=== PATIENT | male | born 1950 | race Caucasian/White ===

== ENCOUNTER 2017-08-31 17:14 | Emergency (ER) | payer MEDICARE, OTHER, SELFPAY ==
[2017-08-31 17:15] VITALS: BP 140/82; PULSE 82; RESP 18; O2SAT 98; BMI 30.5
--- NOTE | 2017-08-31 17:23 | CT_ITS ---
CT abdomen pelvis w con CLINICAL INDICATION: Abdominal pain and distention ITS.REASON: abdomen pain ORDERING PHYSICIAN: Yohana Cabrera MD PATIENT AGE: 67 years COMPARISON: 09/03/2016 TECHNIQUE: Axial images obtained with sagittal and coronal reformats. PROCEDURE: Oral Contrast: None IV Contrast: 75 mL's of [id number]. FINDINGS: Coronary artery stent present. 7 mm right lower lobe nodule noted in may contain some central calcification. Mild dependent changes are present in the lung bases. Diffuse hepatic steatosis. No focal liver lesion.. The spleen, left adrenal gland, pancreas, and kidneys have an unremarkable appearance. There is a stable slightly iso to hyperdense nodule in the right adrenal gland and 12 mm. Scattered small lymph nodes are present in the retroperitoneum. Unremarkable appendix. There is extensive diverticulosis of the descending and sigmoid colon. The sigmoid colon is redundant. There is focal thickening of the mid aspect of the sigmoid colon which lies slightly towards the right in the mid abdomen at the level of the umbilicus with stranding of the pericolic fat consistent with acute diverticulitis. No abscess or free air is evident. The appendix is just to the right of this area of diverticulitis but has an unremarkable appearance. The prostate is enlarged measuring 6.6 cm AP and 6.5 cm transverse and 6.2 cm cephalad to caudad. Urinary bladder wall is thickened. IMPRESSION: 1. Acute diverticulitis of the sigmoid colon with severe diverticulosis. No abscess or perforation. 2. Enlarged prostate with thickening of the urinary bladder. Previously there was bilateral hydronephrosis. This however has resolved. Urinary bladder wall is not as thickened as it was on 09/03/2016 3. No change right adrenal nodule
[2017-08-31 17:31] LABS: Basophils # 0.1 K/mm3 (0-0.2); Basophils % 0.5 % (0.1-2.0); Eosinophils # 0.2 K/mm3 (0.0-0.4); Hematocrit 49.4 % (42.0-52.0); Hemoglobin 16.4 g/dL (14.1-18.0); Lymphocytes % 17.2 K/mm3 (10-50); Mean Corpuscular HGB Conc 33.1 g/dL (31.8-35.4); Mean Corpuscular Hemoglobin 30.1 pg (27.0-31.2); Monocytes # 0.8 K/mm3 (0.1-1.0); Monocytes % 6.9 % (1.7-9.3); Neutrophils # 8.3 K/mm3 (1.8-7.8); Neutrophils % 73.4 % (37.0-80.0); Platelet Count 183 K/mm3 (142-424); Red Blood Count 5.43 M/mm3 (4.60-6.20); White Blood Count 11.3 K/mm3 (4.8-10.8)
--- NOTE | 2017-08-31 17:33 | [facility].EDABDPAI ---
ED Disposition Clinical Impression: Acute diverticulitis, BPH (benign prostatic hyperplasia) Disposition: Home, Self-Care Condition on Discharge: Good Instructions: DI for Acute Abdomen Additional Instructions: 1- clear liquid diet. 2- start abx flagyl 500 mg TID and cipro 500 mgh po bid # 20. 3- follow up with pcp in am . 4- return if worse pain, fever or vomiting. Prescriptions: Ciprofloxacin HCl [Cipro 500mg Tab] 500 mg PO BID #20 tab metroNIDAZOLE [Flagyl] 500 mg PO TID #30 tab Time of Disposition: 19:48 - Critical Care Critical Care Time: No Attestation: On , the high probability of a clinically significant, sudden or life threatening deterioration of the following system(s) required my full and direct attention, intervention and personal management. The time I documented below is in addition to time spent performing reported procedures but includes the following listed in this critical care notation. Medical Decision Making - Medical Records Medical records reviewed: Yes: I reviewed the patient's medical records. Vital Signs: 08/31/17 17:15 Temperature Source Oral Pulse Rate [Right Brachial] 82 Respiratory Rate 18 Blood Pressure [Right Arm] 140/82 Blood Pressure Mean [Right Arm] 101 Blood Pressure Source [Right Arm] Automatic Cuff Blood Pressure Position [Right Arm] Sitting 02 Sat by Pulse Oximetry 98 Oxygen Delivery Method Room Air - Lab Data Lab Results 08/31/17 17:25: WBC 11.3 H, RBC 5.43, Hgb 16.4, Hct 49.4, MCV 91.0, MCH 30.1, MCHC 33.1, RDW 14.0, Plt Count 183, MPV 10.0, Neut % (Auto) 73.4, Lymph % (Auto) 17.2, [place] % (Auto) 6.9, Eos % (Auto) 2.0, Baso % (Auto) 0.5, Neut # (Auto) 8.3 H, Lymph # (Auto) 2.0, [place] # (Auto) 0.8, Eos # (Auto) 0.2, Baso # (Auto) 0.1 08/31/17 17:25: Sodium 136, Potassium 4.1, Chloride 98, Carbon Dioxide 29, Anion Gap 13.1, BUN 11, Creatinine 0.83, Estimated Creat Clear 103, Estimated GFR 92, Est GFR ( Amer) 112, Glucose 264 H, Calcium 8.7, Total Bilirubin 1.1 H, AST 30, ALT 53, Alkaline Phosphatase 143 H, Total Protein 7.4, Albumin 3.7, Globulin 3.7 H, Albumin/Globulin Ratio 1.0 L, Amylase 22 L, Lipase 185 08/31/17 17:51: Urine Color Yellow, Urine Appearance Clear, Urine pH 5.5, Ur Specific [place] 1.010, Urine Protein Negative, Urine Glucose (UA) 2+, Urine Ketones Negative, Urine Blood Negative, Urine Nitrate Negative, Urine Bilirubin Negative, Urine Urobilinogen 0.2, Ur Leukocyte Esterase Negative, Urine RBC None, Urine WBC None, Ur Squamous Epith Cells None, Urine Bacteria Trace 08/31/17 17:51: Lactic Acid 1.5 Result diagrams: 08/31/17 17:25 08/31/17 17:25 Orders (Tests/Meds): ED MEDICATIONS Discontinued Medications Generic Name Dose Route Start Last Admin Trade Name Stephaneq PRN Reason Stop Dose Admin Iopamidol 75 ml 08/31/17 18:16 08/31/17 18:17 [id number]; 75ml Vial IV 08/31/17 18:17 75 ml ONCE ONE Administration Sodium Chloride 10 ml 08/31/17 18:16 08/31/17 18:17 Rad-Saline Flush 10ml Syringe IV 08/31/17 18:17 10 ml ONCE ONE Administration ORDERS Category Date Time Status CT abdomen pelvis w con Stat Cat Scan 08/31/17 17:23 Taken Blood Culture Stat Micro 08/31/17 17:51 Received - CT Data CT Scan: Abdomen, Pelvis Time Received: 19:[address] Reviewed: Yes: I have viewed the radiologist's interpretation Preliminary Findings: Abnormal Findings Narrative: acute sigmoid diverticulitis. - Zak Inquiry Pt receiving controlled substance: No Zak was queried for this patient: No Medical Decision Making Narrative: The patient remianed stable without pain , was on the phine most of the time, I discussed with him his Lab abd ct results of acute diverticulitis, he denied eating nuts or seeds lately. I advised him foir abx and clear liquids. to return if not better in 2 days, he verblaized understanding. Abdominal Pain HPI - General Chief Complaint: PAIN Stated Complaint: a
--- NOTE | 2017-08-31 17:36 | ED_ITS ---
ED Disposition Clinical Impression: Acute diverticulitis, BPH (benign prostatic hyperplasia) Disposition: Home, Self-Care Condition on Discharge: Good Instructions: DI for Acute Abdomen Additional Instructions: 1- clear liquid diet. 2- start abx flagyl 500 mg TID and cipro 500 mgh po bid # 20. 3- follow up with pcp in am . 4- return if worse pain, fever or vomiting. Prescriptions: Ciprofloxacin HCl [Cipro 500mg Tab] 500 mg PO BID #20 tab metroNIDAZOLE [Flagyl] 500 mg PO TID #30 tab Time of Disposition: 19:48 - Critical Care Critical Care Time: No Attestation: On , the high probability of a clinically significant, sudden or life threatening deterioration of the following system(s) required my full and direct attention, intervention and personal management. The time I documented below is in addition to time spent performing reported procedures but includes the following listed in this critical care notation. Medical Decision Making - Medical Records Medical records reviewed: Yes: I reviewed the patient's medical records. Vital Signs: 08/31/17 17:15 Temperature Source Oral Pulse Rate [Right Brachial] 82 Respiratory Rate 18 Blood Pressure [Right Arm] 140/82 Blood Pressure Mean [Right Arm] 101 Blood Pressure Source [Right Arm] Automatic Cuff Blood Pressure Position [Right Arm] Sitting 02 Sat by Pulse Oximetry 98 Oxygen Delivery Method Room Air - Lab Data Lab Results 08/31/17 17:25: WBC 11.3 H, RBC 5.43, Hgb 16.4, Hct 49.4, MCV 91.0, MCH 30.1, MCHC 33.1, RDW 14.0, Plt Count 183, MPV 10.0, Neut % (Auto) 73.4, Lymph % (Auto ) 17.2, [place] % (Auto) 6.9, Eos % (Auto) 2.0, Baso % (Auto) 0.5, Neut # (Auto) 8.3 H, Lymph # (Auto) 2.0, [place] # (Auto) 0.8, Eos # (Auto) 0.2, Baso # (Auto) 0.1 08/31/17 17:25: Sodium 136, Potassium 4.1, Chloride 98, Carbon Dioxide 29, Anion Gap 13.1, BUN 11, Creatinine 0.83, Estimated Creat Clear 103, Estimated GFR 92, Est GFR ( Amer) 112, Glucose 264 H, Calcium 8.7, Total Bilirubin 1.1 H, AST 30, ALT 53, Alkaline Phosphatase 143 H, Total Protein 7.4, Albumin 3.7, Globulin 3.7 H, Albumin/Globulin Ratio 1.0 L, Amylase 22 L, Lipase 185 08/31/17 17:51: Urine Color Yellow, Urine Appearance Clear, Urine pH 5.5, Ur Specific [place] 1.010, Urine Protein Negative, Urine Glucose (UA) 2+, Urine Ketones Negative, Urine Blood Negative, Urine Nitrate Negative, Urine Bilirubin Negative, Urine Urobilinogen 0.2, Ur Leukocyte Esterase Negative, Urine RBC None , Urine WBC None, Ur Squamous Epith Cells None, Urine Bacteria Trace 08/31/17 17:51: Lactic Acid 1.5 Result diagrams: 08/31/17 17:25 08/31/17 17:25 Orders (Tests/Meds): ED MEDICATIONS Discontinued Medications Generic Name Dose Route Start Last Admin Trade Name Freq PRN Reason Stop Dose Admin Iopamidol 75 ml 08/31/17 18:16 08/31/17 18:17 [id number]; 75ml Vial IV 08/31/17 18:17 75 ml ONCE ONE Administration Sodium Chloride 10 ml 08/31/17 18:16 08/31/17 18:17 Rad-Saline Flush 10ml Syringe IV 08/31/17 18:17 10 ml ONCE ONE Administration ORDERS Category Date Time Status CT abdomen pelvis w con Stat Cat Scan 08/31/17 17:23 Taken Blood Culture Stat Micro 08/31/17 17:51 Received - CT Data CT Scan: Abdomen, Pelvis Time Received: 19:[address] Reviewed: Yes: I have viewed the radiologi
[2017-08-31 17:59] LABS: Microscopic, Urine URINE MICROSCOPIC (MICROSCOPIC)
[2017-08-31 18:00] LABS: Appearance,Urine CLEAR (Clear); Bilirubin,Urine Negative (Negative); Blood, Urine Negative (Negative); Color,Urine YELLOW (Yellow); Glucose,Urine (UA) 2+ (Negative); Ketones,Urine Negative (Negative); Leukocyte Esterase,Urine Negative (Negative); Nitrate,Urine Negative (Negative); PH,Urine 5.5 (5.0-8.5); Protein,Urine Negative (Negative); Urobilinogen,Urine 0.2 EU/dl (0.2)
[2017-08-31 18:08] LABS: Alanine Aminotransferase 53 U/L (12-78); Albumin Level 3.7 gm/dL (3.4-5.0); Alkaline Phosphatase 143 U/L (46-116); Amylase 22 U/L (25-125); Anion Gap 13.1 mEq/L (5-15); Bilirubin,Total 1.1 mg/dL (0.2-1.0); Blood Urea Nitrogen 11 mg/dL (7-18); Calcium 8.7 mg/dL (8.5-10.1); Carbon Dioxide 29 mmol/L (21.0-32.0); Chloride 98 mmol/L (98-107); Creatinine Clearance Estimated 103 mL/min (0-300); Creatinine,Serum 0.83 mg/dL (0.70-1.30); Estimated Glomerular Filt Rate 92 ml/min (>60); GFR (African American) 112 ML/MIN (>60); Globulin 3.7 gm/dl (1.3-3.2); Glucose 264 mg/dL (74-106); Lipase 185 u/L (73-393); Potassium 4.1 mmoL/L (3.5-5.1); Sodium 136 mmol/L (136-145); Total Protein,Serum 7.4 gm/dL (6.4-8.2)
[2017-08-31 18:09] LABS: Aspartate Amino Transferase 30 U/L (15-37)
[2017-08-31 18:10] LABS: Bacteria,Urine Trace /lpf
[2017-08-31 18:15] LABS: Lactic Acid 1.5 mmol/L (0.4-2.0)
[2017-08-31 19:44] VITALS: TEMP 36.9
[2017-08-31 20:23] VITALS: BP 121/70; PULSE 85; RESP 20; TEMP 36.6; O2SAT 99
== END 2017-08-31 20:24 | disposition home or self-care (01) ==
PROVIDERS: Emergency Provider Emergency Medicine; Family Provider Family Medicine; PCP Nurse Practitioner Family
DX: K57.92 Diverticulitis of intestine, part unspecified, without perforation or abscess without bleeding (principal)
CPT/HCPCS: 74177; 80053; 81001; 82150; 83605; 83690; 85025; 87040; 96365; 99283; Q9967

== ENCOUNTER 2018-03-19 07:00 | Outpatient (RCR) | payer MEDICARE, OTHER, SELFPAY | END 2018-04-16 14:55 | disposition home or self-care (01) | LOC: OT 07:00 | PROVIDERS: Family Provider Family Medicine; PCP Nurse Practitioner Family; Visit Provider Orthopaedic Surgery Adult Reconstructive Orthopaedic Surgery | DX: M19.011 Primary osteoarthritis, right shoulder (principal); M19.012 Primary osteoarthritis, left shoulder | CPT/HCPCS: 97110; 97165 ==

== ENCOUNTER → 2018-12-11 13:10 | Outpatient (POV) | payer MEDICARE, OTHER, SELFPAY | PROVIDERS: Visit Provider Internal Medicine | DX: Z00.00 Encounter for general adult medical examination without abnormal findings (principal) ==

== ENCOUNTER → 2021-04-12 11:39 | Outpatient (CLI) | payer MEDICARE, MEDICAID, SELFPAY | PROVIDERS: PCP Nurse Practitioner Family; Visit Provider Nurse Practitioner | DX: Z20.822 Contact with and (suspected) exposure to COVID-19 (principal); U07.1 COVID-19 | CPT/HCPCS: C9803; U0003; U0005 ==

== ENCOUNTER 2021-04-20 10:10 | Outpatient (CLI) | payer MEDICARE, MEDICAID, SELFPAY ==
[2021-04-20] VITALS (7 sets, daily range): BP systolic 132–154; BP diastolic 74–95; PULSE 70–88; RESP 20–22; TEMP 37; O2SAT 93–98
== END 2021-04-20 12:12 | disposition home or self-care (01) ==
PROVIDERS: PCP Nurse Practitioner Family; Visit Provider Nurse Practitioner Family
DX: U07.1 COVID-19 (principal); Z23 Encounter for immunization
CPT/HCPCS: 96365